=== PATIENT | male | born 1995 | race Caucasian/White ===

== ENCOUNTER 2018-11-19 00:46 | Inpatient (IN) | payer MEDICAID ==
[~2018-11-19] VITALS: Ht 180.3 cm; Wt 81.8 kg
[2018-11-19 01:35] LABS: BASOPHILS 0.2 % (0-2); EOSINOPHILS 2.5 % (0-7); HEMATOCRIT 41.3 % (42.0-54.0); IMMATURE GRANULOCYTES 0.3 % (0-5); LYMPHOCYTES 9.9 % (15-50); MCH 29.9 pg (26.0-34.0); MCHC 33.9 g/dL (31.0-37.0); MCV 88.2 fL (80.0-100.0); MEAN PLATELET VOLUME 8.8 fL (7.4-10.4); MONOCYTES 7.2 % (2-11); NEUTROPHILS 79.9 % (40-80); PLATELET COUNT 261 10x3/uL (130-400); RBC 4.68 10x6/uL (4.20-6.10); RDW 13.1 % (11.5-14.5); WBC 11.7 10x3/uL (4.8-10.8)
[2018-11-19 01:50] LABS: ALBUMIN 2.7 g/dL (3.4-5.0); ALKALINE PHOSPHATASE 66 U/L (46-116); ALT (SGPT) 39 U/L (10-68); BILIRUBIN - TOTAL 0.26 mg/dL (0.2-1.3); CALC OSMOLALITY 266 mosm/kg (275-300); CALCIUM 8.2 mg/dL (8.5-10.1); CARBON DIOXIDE 26.5 mmol/L (21.0-32.0); CHLORIDE - SERUM 100 mmol/L (98-107); CREATININE - SERUM 1.2 mg/dL (0.6-1.3); GLUCOSE 107 mg/dL (74-106); POTASSIUM - SERUM 3.7 mmol/L (3.5-5.1); PROTEIN - SERUM 6.9 g/dL (6.4-8.2); SODIUM 134 mmol/L (136-145); UREA NITROGEN 10 mg/dL (7-18); eGFR NON AFRICAN AMERICAN 80 mL/min (90-120)
[2018-11-19 03:05] VITALS: BP 134/69; Ht 180.3 cm; Wt 81.8 kg
--- NOTE | 2018-11-19 03:15 | NUR ---
PT ARRIVED ON UNIT VIA WHEELCHAIR ESCORTED BY ER STAFF. OPEN SORE APPROX 1 INCH IN DIAMETER ON FRONT LLE WITH DRAINAGE. COVERED WITH 4X4'S AND WRAPPED WITH KERLEX. NPO STATUS DUE TO AM SURGICAL CONSULT. STARTED IV FLUIDS PER PROTOCOL...NS @ 50. IV VANC COMPLETED.
[2018-11-19 04:36] VITALS: BP 134/69
[2018-11-19 09:15] VITALS: BP 121/65
[2018-11-19 13:11] VITALS: BP 125/70
[2018-11-19 15:45] VITALS: BP 152/73
--- NOTE | 2018-11-19 16:25 | NUR ---
I have reviewed this patient and I concur with the Shift Assessment completed by the Licensed Practical Nurse today this shift.
--- NOTE | 2018-11-19 19:00 | NUR ---
REPORT RECEIVED AND CARE OF PT ASSUMED. PT LYING ON RIGHT SIDE WITH EYES CLOSED AND EASY RESPIRATIONS. IV IN LEFT FA PATENT WITH NS INFUSING AT 50 ML / HR. DRESSING ON LEFT [place] CLEAN AND DRY. WILL MONITOR FOR NEEDS.
--- NOTE | 2018-11-19 21:36 | NUR ---
HS MEDICATIONS GIVEN. WILL CONTINUE TO MONITOR FOR NEEDS.
--- NOTE | 2018-11-20 00:07 | NUR ---
GAVE MORPHINE 4 MG IVP PER REQUEST FOR PAIN. ALSO GAVE SCHEDULED VANC IVPB. WILL CONTINUE TO MONITOR FOR NEEDS.
[2018-11-20 00:54] VITALS: BP 110/55
[2018-11-20 05:26] VITALS: BP 121/66
[2018-11-20 06:53] LABS: BASOPHILS 0.3 % (0-2); EOSINOPHILS 3.5 % (0-7); HEMATOCRIT 37.7 % (42.0-54.0); HEMOGLOBIN 12.6 g/dL (13.5-17.5); IMMATURE GRANULOCYTES 0.3 % (0-5); LYMPHOCYTES 24.4 % (15-50); MCH 29.6 pg (26.0-34.0); MCHC 33.4 g/dL (31.0-37.0); MCV 88.5 fL (80.0-100.0); MEAN PLATELET VOLUME 8.7 fL (7.4-10.4); MONOCYTES 7.8 % (2-11); NEUTROPHILS 63.7 % (40-80); PLATELET COUNT 301 10x3/uL (130-400); RBC 4.26 10x6/uL (4.20-6.10)
[2018-11-20 07:08] LABS: ALBUMIN 2.4 g/dL (3.4-5.0); ALKALINE PHOSPHATASE 51 U/L (46-116); ALT (SGPT) 33 U/L (10-68); BILIRUBIN - TOTAL 0.19 mg/dL (0.2-1.3); CALC OSMOLALITY 273 mosm/kg (275-300); CALCIUM 8.5 mg/dL (8.5-10.1); CARBON DIOXIDE 27.5 mmol/L (21.0-32.0); CHLORIDE - SERUM 104 mmol/L (98-107); GLUCOSE 122 mg/dL (74-106); POTASSIUM - SERUM 3.7 mmol/L (3.5-5.1); PROTEIN - SERUM 6.3 g/dL (6.4-8.2); SODIUM 137 mmol/L (136-145); UREA NITROGEN 10 mg/dL (7-18)
[2018-11-20 07:17] LABS: CREATININE - SERUM 0.8 mg/dL (0.6-1.3); eGFR NON AFRICAN AMERICAN > 90 mL/min (90-120)
[2018-11-20 07:18] LABS: WBC 7.7 10x3/uL (4.8-10.8)
[2018-11-20 09:04] VITALS: BP 105/57
[2018-11-20] MEDS ORDERED: BACTRIM 400-801 TAB PO (11:18)
[2018-11-20] MEDS ORDERED: ULTRAM50 MG PO (11:18)
--- NOTE | 2018-11-20 11:45 | NUR ---
PATIENT UP AMBULATING AT THIS TIME.
--- NOTE | 2018-11-20 12:04 | NUR ---
WENT INTO PATIENTS ROOM TO DO WOUND CARE AND TALK ABOUT DISCHARGE. PATIENT NOT IN ROOM AND IV PULLED OUT WITH CATH TIP INTACT DRIPPING ON THE FLOOR. TURNED IV OFF. TRIED TO CALL HIS HOME NUMBER AND HIS FATHERS NUMBER. NO ANSWER AT THIS TIME. NOTIFIED PHYSICIAN.
--- NOTE | 2018-11-20 12:25 | NUR ---
PATIENT APPARENTLY LEFT AMA WITH NO DC INSTRUCTIONS OR PRESCRIPTIONS.
--- NOTE | 2018-11-20 15:32 | MORECARE ---
CASE MANAGEMENT DISCHARGE SUMMARY PATIENT: LEE HEALY UNIT: [id number] ADM DATE: 11/19/18 AGE: 23 : 95 SEX: M ROOM/BED: D.2216 AUTHOR: ANSHU MURILLO PHYSICIAN: REFERRING PHYSICIAN: KENNEY KHANNA MD DATE OF SERVICE: 11/20/18 Discharge Plan Patient Name: LEE HEALY Facility: [facility]:[place] : 1995 Planned Disposition: Home Anticipated Discharge Date: 11/20/18 Discharge Date: 11/20/2018 Expected LOS: 1 Initial Reviewer: [email or web address] Initial Review Date: 11/19/2018 Generated: 11/20/18 4:31 pm Comments DCP- Discharge Planning Updated by [email or web address]: Leslie Yang on 11/20/18 2:[address] LATE ENTRY THE PRIMARY NURSE WENT TO GIVE THE PATIENT DRESSINGS FOR DISCHARGE. HE WAS NOT IN HIS ROOM. HE HAD DC'D HIS IV AND LEFT THE HOSPITAL. WHEN THE NURSE CALLED HIM AND HIS FATHER THERE WAS NO ANSWER. PRESCRIPTIONS WITH HIS CHART. Patient Name: LEE HEALY Page [id number] at 1532 All edits/amendments must be made on the electronic document DICTATION DATE: 11/20/18 153 MARKETING EDUCATION TEACHER: LUPILLO 11/20/18 153 RPT#: [id number] DC DATE:11/20/18 STATUS: DIS IN [facility] [address] [place] [address] END OF REPORT
--- NOTE | 2018-11-22 14:00 | MORECARE ---
CASE MANAGEMENT DISCHARGE SUMMARY PATIENT: LEE HEALY UNIT: [id number] ADM DATE: 11/19/18 AGE: 23 : 95 SEX: M ROOM/BED: D.2216 AUTHOR: ANSHU MURILLO PHYSICIAN: REFERRING PHYSICIAN: KENNEY KHANNA MD DATE OF SERVICE: 11/22/18 Discharge Plan Patient Name: LEE HEALY Facility: [facility]:[place] : 1995 Planned Disposition: Home Anticipated Discharge Date: 11/20/18 Discharge Date: 11/20/2018 Expected LOS: 1 Initial Reviewer: [email or web address] Initial Review Date: 11/19/2018 Generated: 11/22/18 2:59 pm Comments DCP- Discharge Planning Updated by [email or web address]: Leslie Yang on 11/20/18 2:[address] LATE ENTRY THE PRIMARY NURSE WENT TO GIVE THE PATIENT DRESSINGS FOR DISCHARGE. HE WAS NOT IN HIS ROOM. HE HAD DC'D HIS IV AND LEFT THE HOSPITAL. WHEN THE NURSE CALLED HIM AND HIS FATHER THERE WAS NO ANSWER. PRESCRIPTIONS WITH HIS CHART. Last DP export: 11/20/18 2:32 pm Patient Name: LEE HEALY Page [id number] at 1400 All edits/amendments must be made on the electronic document DICTATION DATE: 11/22/18 135 MERCHANDISING TEAM LEAD: LUPILLO 11/22/18 1359 RPT#: [id number] DC DATE:11/20/18 STATUS: DIS IN [facility] [address] [place] [address] END OF REPORT
== END 2018-11-20 12:58 | disposition left against medical advice (07) | DRG 603 ==
LOC: D.ER 00:46 → D.MS 01:41 → D.EDHOLD 01:41 → D.MS 02:02
PROVIDERS: Emergency Medicine; Family Medicine; ADMIT Family Medicine; ATTEND Family Medicine
DX: L03.116 Cellulitis of left lower limb (principal); F17.213 Nicotine dependence, cigarettes, with withdrawal; E86.0 Dehydration; F32.9 Major depressive disorder, single episode, unspecified; F12.90 Cannabis use, unspecified, uncomplicated

== ENCOUNTER 2018-11-30 03:25 | Emergency (ER) | payer MEDICAID ==
[~2018-11-30] VITALS: Ht 180.3 cm; Wt 75.0 kg
[~2018-11-30 03:25] MED LIST: BACTRIM 400-801 TAB PO; ULTRAM50 MG PO
[2018-11-30 03:48] VITALS: Ht 180.3 cm; Wt 75.0 kg
[2018-11-30] MEDS ORDERED: AUGMENTIN 875-11 TAB PO (05:05)
[2018-11-30] MEDS ORDERED: FLUTICASONE PRO16 GM NASAL (05:05)
[2018-11-30 05:12] VITALS: BP 133/74
== END 2018-11-30 05:12 | disposition home or self-care (01) ==
LOC: D.ER 03:25
DX: J01.90 Acute sinusitis, unspecified (principal)